=== PATIENT | female | born 1980 | race Caucasian/White ===

== ENCOUNTER 2019-05-26 05:43 | Emergency (ER) | payer BC ==
[2019-05-26] MEDS ORDERED: NA CHLORIDE 0.9% 0 ML ONE (06:54)
[2019-05-26 07:01] LABS: Absolute Lymphocytes (CBC) 1.9 K/uL (0.7-4.9); Basophils % 0.6 % (0-1.3); Hematocrit 38.5 % (36.0-45.0); Lymphocytes % 24.2 % (15.3-44.8); MPV 10.1 fL (7.6-11.3); RBC Red Blood Cell Count 4.08 M/uL (3.86-4.86)
[2019-05-26 07:02] LABS: Urine Blood TRACE (NEG); Urine Glucose NEGATIVE (NEG); Urine Protein NEGATIVE (NEG); Urine pH 6.5 (5.0-7.0)
[2019-05-26 07:14] LABS: ALT/SGPT 21 U/L (12-78); AST/SGOT 12 U/L (15-37); Albumin 3.9 g/dL (3.4-5.0); Alkaline Phosphatase 50 U/L (45-117); BUN Blood Urea Nitrogen 9 mg/dL (7-18); Bicarbonate 29 mmol/L (21-32); Bilirubin Direct 0.1 mg/dL (0-0.2); Bilirubin Total 0.5 mg/dL (0.2-1.0); Glucose Level 96 mg/dL (74-106); Magnesium 2.1 mg/dL (1.8-2.4); NT PRO-BNP 175 pg/mL (<125); Potassium 4.3 mmol/L (3.5-5.1); Protein, Total 7.3 g/dL (6.4-8.2); Sodium Level 141 mmol/L (136-145); Troponin (Emerg Dept Use Only) < 0.02 ng/mL (0.0-0.045)
[2019-05-26 07:18] LABS: Urine Bacteria <20 /HPF (<20); Urine RBC <5 /HPF (NONE SEEN)
[2019-05-26 07:19] LABS: Urine Culture Reflex Order NOT NEEDED; Urine Mucus 1+ /HPF (NONE SEEN)
--- NOTE | 2019-05-26 07:46 | ER ---
Nurse's Notes [facility] Name: Vicky Moss Age: 39 yrs Sex: Female : 1980 Arrival Date: 05/26/2019 Time: 05:47 Bed 13 Private MD: Diagnosis: Chest pain, unspecified;Palpitations Presentation: 05/26 05:50 Presenting complaint: Patient states: I am having chest discomfort that has been going jb4 on for a few weeks, it feels like a cool burning that comes and goes and I am having palpitations. 05:50 Transition of care: patient was not received from another setting of care. Onset of jb4 symptoms was May 12, 2019. Risk Assessment: Do you want to hurt yourself or someone else? Patient reports no desire to harm self or others. Initial Sepsis Screen: Does the patient meet any 2 criteria? No. Patient's initial sepsis screen is negative. Does the patient have a suspected source of infection? No. Patient's initial sepsis screen is negative. Care prior to arrival: None. 05:50 Method Of Arrival: Wheelchair jb4 05:50 Acuity: SKYE 3 jb4 Historical: - Allergies: 05:50 Bactrim; jb4 05:50 PENICILLINS; jb4 - Home Meds: 05:50 Bystolic oral oral [Active]; jb4 - PMHx: 05:50 postural orthastatic tachycardia syndrome; jb4 - PSHx: 05:50 Ear Tubes; Adenoids; breast implants; jb4 - Immunization history:: Adult Immunizations up to date. - Social history:: Smoking status: Patient/guardian denies using tobacco, Patient/guardian denies using alcohol. - Ebola Screening: : No symptoms or risks identified at this time. Screenin:50 Abuse screen: Denies threats or abuse. Nutritional screening: No deficits noted. jb4 Tuberculosis screening: No symptoms or risk factors identified. Fall Risk None identified. Assessment: 05:50 General: Appears in no apparent distress. comfortable, Behavior is calm, cooperative, jb4 appropriate for age, PT reports chest discomfort described as a cool burning sensation that moves from her epigastric area to her upper chest. comes and goes. and is also experiencing palpitations.. Pain: Denies pain. Neuro: Level of Consciousness is awake, alert, obeys commands, Oriented to person, place, time, situation. Cardiovascular: Patient's skin is warm and dry. Rhythm is sinus rhythm. Respiratory: Airway is patent Respiratory effort is even, unlabored, Respiratory pattern is regular, symmetrical. GI: No signs and/or symptoms were reported involving the gastrointestinal system. : No signs and/or symptoms were reported regarding the genitourinary system. EENT: No signs and/or symptoms were reported regarding the EENT system. Derm: Skin is intact, Skin is pink, warm \T\ dry. Musculoskeletal: Circulation, motion, and sensation intact. Range of motion: intact in all extremities. 06:50 Reassessment: Patient appears in no apparent distress at this time. Patient and/or jb4 family updated on plan of care and expected duration. Pain level reassessed. Patient is alert, oriented x 3, equal unlabored respirations, skin warm/dry/pink. 07:00 General: Appears in no apparent distress. comfortable, Behavior is calm, cooperative. rb1 Pain: Denies pain. Neuro: Level of Consciousness is awake, alert, obeys commands, Oriented to person, place, time, situation. Cardiovascular: Capillary refill < 3 seconds is brisk in bilateral fingers. Respiratory: Airway is patent Respiratory effort is even, unlabored, Respiratory pattern is regular, symmetrical. GI: No signs and/or symptoms were reported involving the gastrointestinal system. : No signs and/or symptoms were reported regarding the genitourinary system. Derm: Skin is pink, warm \T\ dry. Vital Signs: 05:50 BP 112 / 85; Pulse 75; Resp 16; Temp 98.4(O); Pulse Ox 100% on R/A; Weight 49.9 kg (R); jb4 Height 5 ft. 0 in. (152.40 cm) (R); Pain 0/10; 06:30 BP 106 / 79; Pulse 73; Resp 16; Pulse Ox 99% on R/A; jb4 07:00 BP 109 / 80; Pulse 72; Resp 19; Temp 98.3(O); Pulse Ox 100% on R/A; Pain 0/10; rb1 08:00 BP 116 / 78; Pulse 74; Resp 14; Temp 98.1(O); Pulse Ox 100% on R/A; Pain 0/10; rb1 05:50 Body Mass Index 21.48 (49.90 kg, 152.40 cm) jb4 07:00 Pt. denies pain, describes having pressure. rb1 ED Course: 05:47 Patient arrived in ED. ds1 05:50 Arm band placed on right wrist. EKG completed in triage. Results shown to MD. jb4 05:50 Patient has correct armband on for positive identification. Bed in low position. Call jb4 light in reach. Side rails up X 1. environmental monitoring specialist on. Pulse ox on. NIBP on. 06:17 Izabela Kelsey FNP-C is PHCP. snw 06:17 Armen Galvez MD is Attending Physician. snw 06:24 Simone Skinner, RN is Primary Nurse. jb4 06:27 Triage completed. jb4 06:52 XRAY Chest (1 view) In Process Unspecified. EDMS 08:02 No provider procedures requiring assistance completed. Patient did not have IV access rb1 during this emergency room visit. 08:02 HM was placed. Instructions were given. sm3 Administered Medications: 07:01 Not Given (Patient Refused): NS 0.9% 1000 ml IV at 125 ml/hr continuous jb4 Outcome: 07:44 Discharge ordered by MD. snw 08:02 Discharged to home ambulatory, with significant other. rb1 08:02 Condition: stable 08:02 Discharge instructions given to patient, Instructed on discharge instructions, follow up and referral plans. medication usage, Demonstrated understanding of instructions, follow-up care, medications, Prescriptions given X 1. 08:06 Patient left the ED. rb1 Signatures: Dispatcher [employer] EDSD Izabela Kelsey FNP-C CAR SALES ASSOCIATE-Csn Chaya Barrientos ds1 Lawanda Shrestha, RN RN rb1 Simone Skinner, RN RN jb4 Jacqui Tanner sm3
--- NOTE | 2019-05-26 07:46 | EDPHYS ---
Physician Documentation [facility] Name: Vicky Moss Age: 39 yrs Sex: Female : 1980 Arrival Date: 05/26/2019 Time: 05:47 Bed 13 Private MD: ED Physician Armen Galvez HPI: 05/26 06:36 This 39 yrs old Female presents to ER via Wheelchair with complaints of Chest snw Discomfort. 06:36 The patient or guardian reports chest pain that is located primarily in the anterior snw chest wall, bilaterally. The pain does not radiate. Associated signs and symptoms: Pertinent positives: lightheadedness, nausea, palpitations, not sleeping well. The chest pain is described as burning, a heaviness. Duration: The patient or guardian reports multiple episodes. Severity of pain: At its worst the pain was mild moderate. + hx of POTS. tooth extraction one month ago - syncope post procedure. 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 - Social history:: Smoking status: Patient/guardian denies using tobacco, Patient/guardian denies using alcohol. - Ebola Screening: : No symptoms or risks identified at this time. ROS: 06:34 Constitutional: Negative for fever, chills, and weight loss, Eyes: Negative for injury, snw pain, redness, and discharge, ENT: Negative for injury, pain, and discharge, Neck: Negative for injury, pain, and swelling, Respiratory: Negative for shortness of breath, cough, wheezing, and pleuritic chest pain, Back: Negative for injury and pain, : Negative for injury, bleeding, discharge, and swelling, MS/Extremity: Negative for injury and deformity, Skin: Negative for injury, rash, and discoloration, Neuro: Negative for headache, weakness, numbness, tingling, and seizure, Psych: Negative for depression, anxiety, suicide ideation, homicidal ideation, and hallucinations. 06:34 Cardiovascular: Positive for chest pain, of the chest, palpitations. 06:34 Abdomen/GI: Positive for nausea. Exam: 06:34 Constitutional: This is a well developed, well nourished patient who is awake, alert, snw and in no acute distress. Head/Face: Normocephalic, atraumatic. Eyes: Pupils equal round and reactive to light, extra-ocular motions intact. Lids and lashes normal. Conjunctiva and sclera are non-icteric and not injected. Cornea within normal limits. Periorbital areas with no swelling, redness, or edema. ENT: Nares patent. No nasal discharge, no septal abnormalities noted. Tympanic membranes are normal and external auditory canals are clear. Oropharynx with no redness, swelling, or masses, exudates, or evidence of obstruction, uvula midline. Mucous membranes moist. Neck: Trachea midline, no thyromegaly or masses palpated, and no cervical lymphadenopathy. Supple, full range of motion without nuchal rigidity, or vertebral point tenderness. No Meningismus. Chest/axilla: Normal chest wall appearance and motion. Nontender with no deformity. No lesions are appreciated. Cardiovascular: Regular rate and rhythm with a normal S1 and S2. No gallops, murmurs, or rubs. Normal PMI, no JVD. No pulse deficits. Respiratory: Lungs have equal breath sounds bilaterally, clear to auscultation and percussion. No rales, rhonchi or wheezes noted. No increased work of breathing, no retractions or nasal flaring. Abdomen/GI: Soft, non-tender, with normal bowel sounds. No distension or tympany. No guarding or rebound. No evidence of tenderness throughout. Back: No spinal tenderness. No costovertebral tenderness. Full range of motion. Skin: Warm, dry with normal turgor. Normal color with no rashes, no lesions, and no evidence of cellulitis. MS/ Extremity: Pulses equal, no cyanosis. Neurovascular intact. Full, normal range of motion. Neuro: Awake and alert, GCS 15, oriented to person, place, time, and situation. Cranial nerves II-XII grossly intact. Motor strength 5/5 in all extremities. Sensory grossly intact. Cerebellar exam normal. Normal gait. Psych: Awake, alert, with orientation to person, place and time. Behavior, mood, and affect are within normal limits. Vital Signs: 05:50 BP 112 / 85; Pulse 75; Resp 16; Temp 98.4(O); Pulse Ox 100% on R/A; Weight 49.9 kg (R); jb4 Height 5 ft. 0 in. (152.40 cm) (R); Pain 0/10; 06:30 BP 106 / 79; Pulse 73; Resp 16; Pulse Ox 99% on R/A; jb4 07:00 BP 109 / 80; Pulse 72; Resp 19; Temp 98.3(O); Pulse Ox 100% on R/A; Pain 0/10; rb1 08:00 BP 116 / 78; Pulse 74; Resp 14; Temp 98.1(O); Pulse Ox 100% on R/A; Pain 0/10; rb1 05:50 Body Mass Index 21.48 (49.90 kg, 152.40 cm) jb4 07:00 Pt. denies pain, describes having pressure. rb1 MDM: 06:17 Patient medically screened. snw 07:45 ECG:. The patient's deep vein thrombosis risk score was calculated as follows: Total snw Score: 0. This patient was found to be at low risk for a deep vein thrombosis by using the Well's assessment criteria. NATHALIE Risk Score: TOTAL SCORE = 1. Data reviewed: vital signs, nurses notes, lab test result(s), EKG, radiologic studies. Data interpreted: Pulse oximetry: on room air is 100 %. Interpretation: normal. Counseling: I had a detailed discussion with the patient and/or guardian regarding: the historical points, exam findings, and any diagnostic results supporting the discharge/admit diagnosis, the presence of at least one elevated blood pressure reading (>120/80) during this emergency department visit, lab results, radiology results, the need for outpatient follow up, to return to the emergency department if symptoms worsen or persist or if there are any questions or concerns that arise at home. Special discussion: Based on the history and exam findings, there is no indication for further emergent testing or inpatient evaluation. I discussed with the patient/guardian the need to see the animal eviscerator for further evaluation of the symptoms. I discussed with the patient/guardian the need to see the primary care provider for further evaluation of the symptoms. 05/26 06:25 Order name: Basic Metabolic Panel; Complete Time: 07:14 snw 05/26 06:25 Order name: CBC with Diff; Complete Time: 07:04 05/26 06:25 Order name: LFT's; Complete Time: 07:14 05/26 06:25 Order name: Magnesium; Complete Time: 07:14 05/26 06:25 Order name: NT PRO-BNP; Complete Time: 07:14 05/26 06:25 Order name: PT-INR; Complete Time: 07:12 05/26 06:25 Order name: Troponin (emerg Dept Use Only); Complete Time: 07:14 05/26 06:25 Order name: XRAY Chest (1 view) 05/26 06:25 Order name: EKG; Complete Time: 06:29 05/26 06:25 Order name: TSH; Complete Time: 07:14 05/26 06:25 Order name: Urine Microscopic Only; Complete Time: 07:24 05/26 06:53 Order name: Urine Dipstick--Ancillary (enter results); Complete Time: 07:04 05/26 06:53 Order name: Urine --Ancillary (enter results); Complete Time: 07:04 05/26 06:25 Order name: Cardiac monitoring; Complete Time: 06:36 05/26 06:25 Order name: EKG - Nurse/Tech; Complete Time: 06:36 05/26 06:25 Order name: Labs collected and sent; Complete Time: 07:02 05/26 06:25 Order name: O2 Per Protocol; Complete Time: 06:36 05/26 06:25 Order name: O2 Sat Monitoring; Complete Time: 06:36 05/26 06:25 Order name: Urine Test (obtain specimen); Complete Time: 07:01 05/26 06:25 Order name: Urine Dipstick-Ancillary (obtain specimen); Complete Time: 07:01 05/26 07:34 Order name: Holter Monitor (ORDER); Complete Time: 07:34 bd Administered Medications: 07:01 Not Given (Patient Refused): NS 0.9% 1000 ml IV at 125 ml/hr continuous jb4 Disposition: 05/27 06:12 Co-signature as Attending Physician, Armen Galvez MD I agree with the assessment and tw4 plan of care. Disposition: 05/26/19 07:44 Discharged to Home. Impression: Chest pain, unspecified, Palpitations. - Condition is Stable. - Discharge Instructions: Nonspecific Chest Pain, Gastroesophageal Reflux Disease, Adult, Holter Monitoring, Palpitations, Aspirin and Your Heart. - Prescriptions for Carafate 1 gram Oral Tablet - take 2 tablet by ORAL route every 12 hours take on an empty stomach, beginning on waking and last dose at bedtime; 100 tablet. - Work release form, Medication Reconciliation Form, Thank You Letter, Antibiotic Education, Prescription Opioid Use form. - Follow up: Private Physician; When: 5 - 6 days; Reason: Recheck today's complaints, Continuance of care, Re-evaluation by your physician. Follow up: Emergency Department; When: As needed; Reason: Trouble breathing, Worsening of condition. Signatures: Dispatcher [employer] EDMS Izabela Kelsey, DAVID-C INTERIOR PANELER-Csnw Lawanda Shrestha, RN RN rb1 Simone Skinner RN RN jb4 Armen Galvez MD MD tw4 Corrections: (The following items were deleted from the chart) 05/26 07:02 06:27 IV Saline Lock ordered. snw jb4 08:06 07:44 05/26/2019 07:44 Discharged to Home. Impression: Chest pain, unspecified; rb1 Palpitations. Condition is Stable. Forms are Medication Reconciliation Form, Thank You Letter, Antibiotic Education, Prescription Opioid Use. Follow up: Private Physician; When: 5 - 6 days; Reason: Recheck today's complaints, Continuance of care, Re-evaluation by your physician. Follow up: Emergency Department; When: As needed; Reason: Trouble breathing, Worsening of condition. snw
--- NOTE | 2019-05-26 08:28 | RAD REPORT ---
EXAM DESCRIPTION: RAD - Chest Single View - 05/26/2019 6:50 am CLINICAL HISTORY: CHEST PAIN Chest pain. COMPARISON: Chest Pa And Lat (2 Views) dated 02/04/2017 FINDINGS: Portable technique limits examination quality. The lungs are grossly clear. The heart is normal in size. No displaced fractures. IMPRESSION: No acute intrathoracic process suspected.
--- NOTE | 2019-05-26 10:38 | EKG ---
Test Date: 2019-05-26 Test Time: 06:04:55 Arts Administrator: ROC MEASUREMENT RESULTS: Intervals: Rate: 72 MD: 108 QRSD: 74 QT: 384 QTc: 420 Lorimor: P: 74 MD: 108 QRS: 73 T: 71 INTERPRETIVE STATEMENTS: Sinus rhythm with sinus arrhythmia with short MD with occasional premature ventricular complexes Septal infarct, age undetermined Abnormal ECG No previous ECG available for comparison Electronically Signed On 05-26-19 10:38:06 CDT by Cheng Tineo
--- NOTE | 2019-05-27 13:17 | HM ---
Indications : Chest pain Diary Notations : Yes Referring MD : DAVID Tom Medications: Reading MD : Giancarlo Tang MD Summary Report Test Date : 05/26/2019 7:37:45 AM Start Time : 7:37:45 AM Total Beats : 284346 Hours Analyzed : 24:01:15 Unknown Beats : 0 Scan Date : 05/27/2019 9:49:17 AM Artifact : 0:18:17 Other Beats : 0 Percent AFIB : 0.00% Rate Dependent Events Heart Rates Min : 61 BPM at 4:08:00 AM-2 Bradycardia Runs: 0 Pauses : 0 Max : 117 BPM at 9:34:00 AM-1 Longest : 0 beats at Longest : 0.0 secs Avg : 80 BPM Min rate : 0 BPM at at Ventricular Events Supraventricular Events Total Beats : 132 Couplets : 0 Total Beats : 11 Couplets : 0 Triplets : 0 Bigeminy Runs : 0 VTach Runs : 0 SVTach Runs : 1 Longest : 0 beats at Longest : 6 beats at 3:51:23 PM-1 Max Rate ; 0 BPM Max Rate : 161 BPM at 3:51:23 PM-1 Impressions and Findings EKG: Sinus with premature ventricular complexes. Possible septal infarct Holter: Sinus rhythm. Heart rate 61-117 beats per minute with no pauses. Occasional premature ventricular complexes noted with no ventricular tachycardia. Rare premature atrial complexes with a six beat run of supraventricular tachycardia. No atrial fibrillation.
== END 2019-05-26 08:06 | disposition home or self-care (01) ==
LOC: ER 05:43
DX: R07.9 Chest pain, unspecified (principal); R00.2 Palpitations; Z88.1 Allergy status to other antibiotic agents; Z88.0 Allergy status to penicillin
CPT/HCPCS: 36415; 71045; 80048; 80076; 81003; 81015; 81025; 83735; 83880; 84443; 84484; 85025; 85610; 93005; 93225; 93226; 99284; J7030